=== PATIENT | female | born 1945 | race Caucasian/White ===

== ENCOUNTER 2018-08-06 09:26 | Emergency (ER) | payer MEDICARE, OTHER ==
--- NOTE | 2018-08-06 10:22 | ERPHSYRPT ---
- History of Present Illness Time Seen by Provider: 08/06/18 10:13 Source: patient Exam Limitations: no limitations Patient Subjective Stated Complaint: weakness and sob for four days. occasional black stools for four days Triage Nursing Assessment: ambulated to room per w/c. skin w/d, pale. resp nonlabored. patient somewhat lethargic but easily arousable. a/o times three. Physician History: 73-year-old white female arrives with complaint of feeling weak short of breath for 4 days states she's had occasional blood in her stools denies any chest pain denies any abdominal pain no nausea no vomiting Past medical history includes diabetes type 2, coronary artery disease, hyperlipidemia, high blood pressure, GERD, gallbladder disease, depression Past surgical history includes cardiac catheter, appendectomy, cholecystectomy Social history patient denies tobacco alcohol or illicit drug use Timing/Duration: day(s) (3-4 days) Severity: moderate Modifying Factors: Improves With: nothing Associated Symptoms: shortness of breath, weakness, No nausea, No vomiting, No abdominal pain, No heartburn, No diaphoresis, No cough, No chills, No chest pain , No fever, No headaches, No loss of appetite, No malaise, No rash, No syncope, No seizure Allergies/Adverse Reactions: No Known Drug Allergies Allergy (Unverified 08/06/18 10:10) Home Medications: Amlodipine/Atorvastatin [Amlodipine-Atorvast 10-10 mg] 1 each PO DAILY 08/06/18 [History] Aspirin EC 81 mg [Ecotrin 81 mg] 81 mg PO DAILY 08/06/18 [History] Magnesium Oxide [Magnesium] 400 mg PO BID 08/06/18 [History] Metformin HCl 1,000 mg PO BID 08/06/18 [History] Omeprazole 20 MG [Prilosec 20 mg] 20 mg PO DAILY 08/06/18 [History] Paroxetine HCl 20 mg [Paxil 20 MG] 20 mg PO DAILY 08/06/18 [History] Quinapril HCl 10 mg [Accupril 10MG Tablet] 10 mg PO DAILY 08/06/18 [History] Sitagliptin Phosphate [Januvia] 100 mg PO DAILY 08/06/18 [History] cloNIDine HCl [Clonidine HCl] 0.1 mg PO TID 08/06/18 [History] Hx Tetanus, Diphtheria Vaccination/Date Given: No Hx Influenza Vaccination/Date Given: No Hx Pneumococcal Vaccination/Date Given: No - Review of Systems Constitutional: Weakness, No Fever, No Chills Eyes: No Symptoms Ears, Nose, & Throat: No Symptoms Respiratory: Dyspnea, No Cough Cardiac: No Chest Pain, No Edema, No Syncope Abdominal/Gastrointestinal: Melena, No Abdominal Pain, No Nausea, No Vomiting, No Diarrhea, No Constipation, No Hematemesis, No Hematochezia, No Dysphagia, No Appetite Changes Genitourinary Symptoms: No Dysuria Musculoskeletal: No Back Pain, No Neck Pain Skin: No Rash Neurological: No Dizziness, No Focal Weakness, No Sensory Changes Psychological: No Symptoms Endocrine: No Symptoms All Other Systems: Reviewed and Negative - Past Medical History Pertinent Past Medical History: Yes Cardiac History: Coronary Artery Disease, High Cholesterol, Hypertension Endocrine Medical History: Diabetes Type II GI Medical History: GERD, Gallbladder Disease Psycho-Social History: Depression - Past Surgical History Past Surgical History: Yes Cardiac: Cardiac Catheterization Gastrointestinal: Appendectomy, Cholecystectomy - Social History Smoking Status: Never smoker Exposure to second hand smoke: Yes Drug Use: none Patient Lives Alone: No - Female History Hx Now: No - Nursing Vital Signs Nursing Vital Signs: Initial Vital Signs Temperature 100 F 08/06/18 09:40 Pulse Rate 92 H 08/06/18 09:40 Respiratory Rate 16 08/06/18 09:40 Blood Pressure 123/69 08/06/18 09:40 O2 Sat by Pulse Oximetry 88 L 08/06/18 09:40 Pain Scale Pain Intensity 4 - Physical Exam General Appearance: no apparent distress, alert Eye Exam: PERRL/EOMI, eyes nml inspection Ears, Nose, Throat Exam: normal ENT inspection, TMs normal, pharynx normal, moist mucous membranes Neck Exam: normal inspection, non-tender, supple, full range of motion Respiratory Exam: normal breath sounds, lungs clear, No respiratory distress Cardiovascular Exam: regular rate/rhythm, normal heart sounds, normal peripheral pulses, No murmur Gastrointestinal/Abdomen Exam: soft, normal bowel sounds, No tenderness, No mass Back Exam: normal inspection, normal range of motion, No CVA tenderness, No vertebral tenderness Extremity Exam: normal inspection, normal range of motion, pelvis stable Neurologic Exam: alert, oriented x 3, cooperative, covered buckle assembler II-XII nml as tested, normal mood/affect, nml cerebellar function, nml station & gait, sensation nml, No motor deficits Skin Exam: normal color, warm, dry, No rash SpO2 Interpretation: borderline oxygenation SpO2: 88 Oxygen Delivery: Room Air - Course Nursing assessment & vital signs reviewed: Yes EKG Interpreted by Me: RATE (88 bpm), Sinus Rhythm, Left Thornton Deviation, Other ( EKG: Sinus arrhythmia, 88 bpm, left axis deviation, , no acute ST or T wave changes noted.) - Radiology Exams Chest X-ray Interpretation: Discussed w/ radiologist (chest x-ray : Impression: 1. The heart size appears at the upper limits of normal to borderline enlarged. I see no findings to suggest pulmonary edema or acute heart failure.2. No airspace infiltrates to suggest focal pneumonia or other active lung disease. 3. Minimal elevation/eventration of the right hemidiaphragm.) Ordered Tests: Active Orders 24 hr Category Date Time Status Accucheck STAT Care 08/06/18 10:19 Active EKG-ER Only STAT Care 08/06/18 10:17 Active IV Insertion STAT Care 08/06/18 10:17 Active CHEST 1 VIEW (PORTABLE) Stat Exams 08/06/18 10:18 Completed AMYLASE Stat Lab 08/06/18 10:20 Completed BLOOD CULTURE Stat Lab 08/06/18 10:30 Received CBC W DIFF Stat Lab 08/06/18 10:20 Completed CMP Stat Lab 08/06/18 10:20 Completed CULTURE,URINE Stat Lab 08/06/18 10:15 Received D-DIMER QUANTITATION Stat Lab 08/06/18 10:20 Completed LIPASE Stat Lab 08/06/18 10:20 Completed Lactic Acid Stat Lab 08/06/18 10:30 Completed Manual Differential NC Stat Lab 08/06/18 10:20 Completed NT PRO BNP Stat Lab 08/06/18 10:20 Completed Occult Blood,Stool Other Stat Lab 08/06/18 10:55 Completed PROTIME WITH INR Stat Lab 08/06/18 10:20 Completed Pathologist Review Stat Lab 08/06/18 10:20 Completed TROPONIN Q3H Lab 08/06/18 10:20 Completed UA W/RFX UR CULTURE Stat Lab 08/06/18 10:15 Completed VENOUS BLOOD GAS Urgent Lab 08/06/18 10:30 Completed Medication Summary Discontinued Medications Generic Name Dose Route Start Last Admin Trade Name Freq PRN Reason Stop Dose Admin Sodium Chloride 1,000 mls @ 999 mls/hr 08/06/18 10:17 08/06/18 10:40 Sodium Chloride 0.9% 1000 Ml IV 08/06/18 11:17 999 mls/hr .Q1H1M STA Administration Sodium Chloride Confirm 08/06/18 10:40 Sodium Chloride 0.9% 1000 Ml Administered 08/06/18 10:41 Dose 1,000 mls @ ud .ROUTE .STK-MED ONE Piperacillin Sod/Tazobactam Sod 3.375 gm in 100 mls @ 200 mls/hr 08/06/18 11: 27 08/06/18 11:34 Zosyn 3.375gm/100 Ml D5w IV 08/06/18 11:56 200 mls/hr STAT STA 200 mls/hr Administration Piperacillin Sod/Tazobactam Sod Confirm 08/06/18 11:31 Zosyn 3.375gm/100 Ml D5w Administered 08/06/18 11:32 Dose 3.375 gm in 100 mls @ ud IV .STK-MED ONE Insulin Human Regular 5 unit 08/06/18 11:18 08/06/18 11:23 Novolin R IV 08/06/18 11:19 5 unit STAT ONE Administration Insulin Human Regular Confirm 08/06/18 11:22 Novolin R Administered 08/06/18 11:23 Dose 5 unit .ROUTE .STK-MED ONE Lab/Rad Data: Laboratory Result Diagrams 08/06/18 10:20 08/06/18 10:20 Laboratory Results 08/06/18 08/06/18 08/06/18 Range/Units 10:55 10:36 10:30 WBC (4.0-10.5) K/mm3 RBC (4.1-5.4) M/mm3 Hgb (12.0-16.0) gm/dl Hct (35-47) % MCV (78-100) fl MCH (26-32) pg MCHC (32-36) g/dl RDW (11.5-14.0) % Plt Count (150-450) K/mm3 MPV (6-9.5) fl Segmented Neutrophils (36.0-66.0) % Band Neutrophils (0.0-2.0) % Lymphocytes (Manual) (24-44) % Eosinophils (Manual) (0.00-3.0) % Nucleated RBCs % Toxic Granulation Platelet Estimate (NORMAL) RBC Morphology Polychromasia Poikilocytosis Anisocytosis Microcytosis Smear Path Review PT (9.95-12.35) SECONDS INR (0.8-3.0) D-Dimer (215-500) ng/mL pO2/FiO2 Ratio 21.0 % VBG pH 7.36 (7.32-7.42) VBG pCO2 at Pat Temp 44 (42-55) mm/Hg VBG pO2 at Pat Temp 25 (25-40) mm/Hg VBG HCO3 24.9 (22-28) meq/L VBG O2 Sat (Eze) 49.3 L (95-100) VBG Base Excess -0.5 (-2.0-2.0) VBG Hemoglobin 6.5 L* VBG Carboxyhemoglobin 4.6 (0.0-6.9) % T HGB POC Potassium 5.8 H (3.5-5.1) Sodium (137-145) mmol/L Potassium (3.5-5.1) mmol/L Chloride (98-107) mmol/L Carbon Dioxide (22-30) mmol/L Anion Gap (5-15) MEQ/L BUN (7-17) mg/dL Creatinine (0.52-1.04) mg/dL Estimated GFR ML/MIN Glucose (74-106) mg/dL Lactic Acid (0.4-2.0) Calcium (8.4-10.2) mg/dL Total Bilirubin (0.2-1.3) mg/dL AST (14-36) U/L ALT (0-35) U/L Alkaline Phosphatase (38-126) U/L Troponin I (0.000-0.034) ng/mL NT-Pro-B Natriuret Pep (0-900) pg/mL Serum Total Protein (6.3-8.2) g/dL Albumin (3.5-5.0) g/dL Amylase (30-110) U/L Lipase (23-300) U/L Urine Color (YELLOW) Urine Appearance (CLEAR) Urine pH (5-6) Ur Specific Troy (1.005-1.025) Urine Protein (Negative) Urine Ketones (NEGATIVE) Urine Blood (0-5) William/ul Urine Nitrite (NEGATIVE) Urine Bilirubin (NEGATIVE) Urine Urobilinogen (0-1) mg/dL Ur Leukocyte Esterase (NEGATIVE) Urine WBC (Auto) (0-5) /HPF Urine RBC (Auto) (0-2) /HPF U Epithel Cells (Auto) (FEW) /HPF Urine Bacteria (Auto) (NEGATIVE) /HPF Granular Casts (Auto) (NEGATIVE) /LPF Other Casts (Auto) (NEGATIVE) /LPF Urine Mucus (Auto) (NEGATIVE) /HPF Urine Yeast (Budding) (NEGATIVE) /HPF Urine Culture Reflexed (NO) Urine Glucose (NEGATIVE) mg/dL Stool Occult Blood NEGATIVE (Negative) ABO Group O Rh Factor NEGATIVE Antibody Screen NEGATIVE (NEGATIVE) 08/06/18 08/06/18 08/06/18 Range/Units 10:30 10:20 10:20 WBC (4.0-10.5) K/mm3 RBC (4.1-5.4) M/mm3 Hgb (12.0-16.0) gm/dl Hct (35-47) % MCV (78-100) fl MCH (26-32) pg MCHC (32-36) g/dl RDW (11.5-14.0) % Plt Count (150-450) K/mm3 MPV (6-9.5) fl Segmented Neutrophils (36.0-66.0) % Band Neutrophils (0.0-2.0) % Lymphocytes (Manual) (24-44) % Eosinophils (Manual) (0.00-3.0) % Nucleated RBCs % Toxic Granulation Platelet Estimate (NORMAL) RBC Morphology Polychromasia Poikilocytosis Anisocytosis Microcytosis Smear Path Review PT 14.3 H (9.95-12.35) SECONDS INR 1.23 (0.8-3.0) D-Dimer 6903 H* (215-500) ng/mL pO2/FiO2 Ratio % VBG pH (7.32-7.42) VBG pCO2 at Pat Temp (42-55) mm/Hg VBG pO2 at Pat Temp (25-40) mm/Hg VBG HCO3 (22-28) meq/L VBG O2 Sat (Eze) (95-100) VBG Base Excess (-2.0-2.0) VBG Hemoglobin VBG Carboxyhemoglobin (0.0-6.9) % T HGB POC Potassium (3.5-5.1) Sodium (137-145) mmol/L Potassium (3.5-5.1) mmol/L Chloride (98-107) mmol/L Carbon Dioxide (22-30) mmol/L Anion Gap (5-15) MEQ/L BUN (7-17) mg/dL Creatinine (0.52-1.04) mg/dL Estimated GFR ML/MIN Glucose (74-106) mg/dL Lactic Acid 1.8 (0.4-2.0) Calcium (8.4-10.2) mg/dL Total Bilirubin (0.2-1.3) mg/dL AST (14-36) U/L ALT (0-35) U/L Alkaline Phosphatase (38-126) U/L Troponin I 0.018 (0.000-0.034) ng/mL NT-Pro-B Natriuret Pep (0-900) pg/mL Serum Total Protein (6.3-8.2) g/dL Albumin (3.5-5.0) g/dL Amylase (30-110) U/L Lipase (23-300) U/L Urine Color (YELLOW) Urine Appearance (CLEAR) Urine pH (5-6) Ur Specific Troy (1.005-1.025) Urine Protein (Negative) Urine Ketones (NEGATIVE) Urine Blood (0-5) William/ul Urine Nitrite (NEGATIVE) Urine Bilirubin (NEGATIVE) Urine Urobilinogen (0-1) mg/dL Ur Leukocyte Esterase (NEGATIVE) Urine WBC (Auto) (0-5) /HPF Urine RBC (Auto) (0-2) /HPF U Epithel Cells (Auto) (FEW) /HPF Urine Bacteria (Auto) (NEGATIVE) /HPF Granular Casts (Auto) (NEGATIVE) /LPF Other Casts (Auto) (NEGATIVE) /LPF Urine Mucus (Auto) (NEGATIVE) /HPF Urine Yeast (Budding) (NEGATIVE) /HPF Urine Culture Reflexed (NO) Urine Glucose (NEGATIVE) mg/dL Stool Occult Blood (Negative) ABO Group Rh Factor Antibody Screen (NEGATIVE) 08/06/18 08/06/18 08/06/18 Range/Units 10:20 10:20 10:15 WBC 126.2 H* (4.0-10.5) K/mm3 RBC 2.27 L (4.1-5.4) M/mm3 Hgb 6.2 L* (12.0-16.0) gm/dl Hct 20.7 L (35-47) % MCV 91.2 (78-100) fl MCH 27.3 (26-32) pg MCHC 30.0 L (32-36) g/dl RDW 21.6 H (11.5-14.0) % Plt Count 16 L* (150-450) K/mm3 MPV 10.0 H (6-9.5) fl Segmented Neutrophils 11 L (36.0-66.0) % Band Neutrophils 1 (0.0-2.0) % Lymphocytes (Manual) 86 H (24-44) % Eosinophils (Manual) 2 (0.00-3.0) % Nucleated RBCs 2 % Toxic Granulation 2+ Platelet Estimate DECREASED (NORMAL) RBC Morphology ABNORMAL Polychromasia 1+ Poikilocytosis 1+ Anisocytosis 2+ Microcytosis 1+ Smear Path Review PT (9.95-12.35) SECONDS INR (0.8-3.0) D-Dimer (215-500) ng/mL pO2/FiO2 Ratio % VBG pH (7.32-7.42) VBG pCO2 at Pat Temp (42-55) mm/Hg VBG pO2 at Pat Temp (25-40) mm/Hg VBG HCO3 (22-28) meq/L VBG O2 Sat (Eze) (95-100) VBG Base Excess (-2.0-2.0) VBG Hemoglobin VBG Carboxyhemoglobin (0.0-6.9) % T HGB POC Potassium (3.5-5.1) Sodium 132 L (137-145) mmol/L Potassium 5.6 H (3.5-5.1) mmol/L Chloride 96 L (98-107) mmol/L Carbon Dioxide 25 (22-30) mmol/L Anion Gap 16.3 H (5-15) MEQ/L BUN 30 H (7-17) mg/dL Creatinine 1.49 H (0.52-1.04) mg/dL Estimated GFR 36.5 ML/MIN Glucose 392 H (74-106) mg/dL Lactic Acid (0.4-2.0) Calcium 8.9 (8.4-10.2) mg/dL Total Bilirubin 0.90 (0.2-1.3) mg/dL AST 236 H (14-36) U/L ALT 109 H (0-35) U/L Alkaline Phosphatase 106 (38-126) U/L Troponin I (0.000-0.034) ng/mL NT-Pro-B Natriuret Pep 8550 H (0-900) pg/mL Serum Total Protein 7.1 (6.3-8.2) g/dL Albumin 3.5 (3.5-5.0) g/dL Amylase 45 (30-110) U/L Lipase 36 (23-300) U/L Urine Color YELLOW (YELLOW) Urine Appearance TURBID (CLEAR) Urine pH 5.0 (5-6) Ur Specific Troy 1.020 (1.005-1.025) Urine Protein 100 (Negative) Urine Ketones TRACE (NEGATIVE) Urine Blood NEGATIVE (0-5) William/ul Urine Nitrite NEGATIVE (NEGATIVE) Urine Bilirubin NEGATIVE (NEGATIVE) Urine Urobilinogen 2 (0-1) mg/dL Ur Leukocyte Esterase MODERATE (NEGATIVE) Urine WBC (Auto) 6-10 (0-5) /HPF Urine RBC (Auto) 3-5 (0-2) /HPF U Epithel Cells (Auto) RARE (FEW) /HPF Urine Bacteria (Auto) MODERATE (NEGATIVE) /HPF Granular Casts (Auto) 2-5 (NEGATIVE) /LPF Other Casts (Auto) 2-5 (NEGATIVE) /LPF Urine Mucus (Auto) SLIGHT (NEGATIVE) /HPF Urine Yeast (Budding) Many (NEGATIVE) /HPF Urine Culture Reflexed YES (NO) Urine Glucose 50 (NEGATIVE) mg/dL Stool Occult Blood (Negative) ABO Group Rh Factor Antibody Screen (NEGATIVE) - Progress Progress: improved Progress Note: 08/06/18 11:34 This is a 73-year-old white female who is visiting her family and comes from [place]. She arrives with complaint of weakness and shortness of breath for 4 days she's noted occasional dark of black stools. She denies any abdominal pain chest pain. She does state that she felt like she had some type of a virus. Past medical history includes diabetes type 2, coronary artery disease, hyperlipidemia, high blood pressure, GERD, gallbladder disease, depression. On physical examination patient is noted have oxygenation of 88% on room air vitals are otherwise stable temp is 100 pulse 92 respirations 16 blood pressure 123/69 again sats are 88%. Patient has an EKG remarkable for sinus arrhythmia 88 bpm left axis deviation no acute ST or T wave changes Patient with a chest x-ray which shows a borderline upper limits of normal heart , no evidence of acute heart failure pulmonary edema. There are no air space infiltrates to suggest focal pneumonia or other active lung disease there is minimal elevation/eventration of the right hemidiaphragm Patient has markedly elevated white count of 126.2 a hemoglobin of 6.7 hematocrit of 20.7 and a markedly reduced platelets of 16 Patient's lactate was 1.8 sodium 132 potassium 5.6 chloride 96 bicarbonate 25 BUN 30 creatinine 1.41 glucose 392 BNP was 8550 D-dimer 6903 GFR was around 43 INR 1.23 Urinalysis 6-10 white cells negative nitrites I've discussed the case with Dr. Downs at [facility] is felt that the patient is worrisome for a leukemia. Will go ahead and give patient Zosyn IV,. Patient was given Humulin insulin IV 5 units. Patient is provided with IV normal saline which is now at 100 mL per hour. And patient is receiving oxygen 3 L. patient will be transferred to [facility]. - Departure Time of Disposition: 12:00 Departure Disposition: Transfer ([facility]) Clinical Impression: Shortness of breath, Thrombocytopenia, Weakness, Elevated d-dimer Leukocytosis Qualifiers: Leukocytosis type: unspecified Qualified Code(s): D72.829 - Elevated white blood cell count, unspecified Anemia Qualifiers: Anemia type: unspecified type Qualified Code(s): D64.9 - Anemia, unspecified Condition: Fair Critical Care Time: No Referrals: Provider,Unknown [Primary Care Provider] -
[2018-08-06 10:27] LABS: INR 1.23 (0.8-3.0)
[2018-08-06 10:33] LABS: Hematocrit 20.7 % (35-47); Mean Cell Volume 91.2 fl (78-100); Mean Corpuscular Hemoglobin 27.3 pg (26-32); Red Blood Count 2.27 M/mm3 (4.1-5.4); Red Cell Distribution Width 21.6 % (11.5-14.0)
[2018-08-06 10:35] LABS: Hemoglobin 6.2 gm/dl (12.0-16.0); White Blood Count 126.2 K/mm3 (4.0-10.5)
[2018-08-06 10:36] LABS: VBG BASE EXCESS -0.5 (-2.0-2.0); VBG CARBOXYHEMOGLOBIN 4.6 % T HGB (0.0-6.9); VBG HCO3- 24.9 meq/L (22-28); VBG O2 SATURATION 49.3 (95-100); VBG POTASSIUM 5.8 (3.5-5.1); VBG pH 7.36 (7.32-7.42)
[2018-08-06 10:36] LABS: Platelet Count 16 K/mm3 (150-450)
[2018-08-06 10:37] LABS: VBG HEMOGLOBIN 6.5
[2018-08-06] MEDS: Sodium Chloride 0.9% 1000 ML 1,000 ML IV STA (10:40)
[2018-08-06] MEDS ORDERED: Sodium Chloride 0.9% 1000 ML 1,000 ML ONE (10:40)
[2018-08-06 10:41] LABS: ALBUMIN 3.5 g/dL (3.5-5.0); ANION GAP 16.3 MEQ/L (5-15); BILIRUBIN,TOTAL 0.9 mg/dL (0.2-1.3); Calcium 8.9 mg/dL (8.4-10.2); Creatinine 1 1.49 mg/dL (0.52-1.04); Potassium 5.6 mmol/L (3.5-5.1); Total Protein 7.1 g/dL (6.3-8.2)
[2018-08-06 11:06] LABS: Appearance TURBID (CLEAR); Bilirubin NEGATIVE (NEGATIVE); Blood NEGATIVE Ery/ul (0-5); Glucose 50 mg/dL (NEGATIVE); Ketones TRACE (NEGATIVE); Leukocyte Esterase MODERATE (NEGATIVE); Nitrite NEGATIVE (NEGATIVE); Protein,Urine Dip 100 (Negative); Urobilinogen 2 mg/dL (0-1)
[2018-08-06 11:18] LABS: ANISOCYTOSIS 2+; BAND 1 % (0.0-2.0); Eosinophil 2 % (0.00-3.0); Lymphocytes 86 % (24-44); Neutrophils 11 % (36.0-66.0); Nucleated Red Blood Cell 2 %; Platelet Estimate DECREASED (NORMAL); Total Cells Counted 100; Toxic Granulation 2+
[2018-08-06 11:20] LABS: Poikilocytosis 1+
[2018-08-06 11:21] LABS: Microcytosis 1+; Polychromasia 1+
[2018-08-06 11:21] LABS: ABO TYPING O; Antibody Screen NEGATIVE (NEGATIVE); RH TYPING NEGATIVE
[2018-08-06] MEDS ORDERED: NovoLIN R ONE (11:22)
--- NOTE | 2018-08-06 11:22 | XRAY ---
Exam: AP portable chest film from 08/06/2018. Comparison: None. Indication: 73-year-old female with shortness of breath and weakness. Findings: The transverse heart size appears at the upper limits of normal to borderline enlarged. Slight tortuosity of the descending thoracic aorta is seen. There is average inflation of the lungs. Minimal eventration/elevation of the right hemidiaphragm is seen. No air space infiltrates, central vascular congestion, pneumothorax, or pleural fluid is seen. No acute osseous process is seen. Mild degenerative changes are seen within both shoulder girdles. Impression: 1. The heart size appears at the upper limits of normal to borderline enlarged. I see no findings to suggest acute heart failure or pulmonary edema. 2. No air space infiltrates to suggest focal pneumonia or other active lung disease is seen. 3. Minimal elevation/eventration of the right hemidiaphragm.
[2018-08-06] MEDS: NovoLIN R IV ONE (11:23)
[2018-08-06] MEDS ORDERED: Zosyn 3.375GM/100 Ml D5W 3.375 GM/100 ML IVPB IV ONE (11:31)
[2018-08-06] MEDS: Zosyn 3.375GM/100 Ml D5W 3.375 GM/100 ML IVPB IV STA (11:34)
[2018-08-06 12:03] VITALS: BP 121/60; PULSE 90
[2018-08-06 18:07] VITALS: O2SAT 88
== END 2018-08-06 12:10 | disposition short-term general hospital (02) ==
LOC: ED 09:26
DX: R06.02 Shortness of breath (principal); D69.6 Thrombocytopenia, unspecified; R53.1 Weakness; D72.829 Elevated white blood cell count, unspecified; R79.1 Abnormal coagulation profile; D64.9 Anemia, unspecified; Z79.899 Other long term (current) drug therapy; E11.9 Type 2 diabetes mellitus without complications; Z79.84 Long term (current) use of oral hypoglycemic drugs
CPT/HCPCS: 36000; 36415; 71045; 80053; 81001; 82150; 82272; 82805; 82962; 83605; 83690; 83880; 84484; 85025; 85379; 85610; 86850; 86900; 86901; 87040; 87086; 93005; 96360; 96361; 96365; 96374; 96375; 99285; J2543; A9270-GY